=== PATIENT | male | born 1985 | race Caucasian/White ===

== ENCOUNTER 2016-05-15 21:01 | Emergency (ER) | payer OTHER ==
[2016-05-15 21:11] VITALS: BP 124/74; PULSE 72; RESP 16; TEMP 98.1; O2SAT 95
--- NOTE | 2016-05-15 21:58 | UCPHY ---
H & P Time Seen by Provider: 05/15/16 21:23 Patient Type: New HPI/ROS: This patient noticed some left great toe pain over the past month did not recall any injury to the toe but his inspected the toe and removed a shard of glass. He thinks there may be persistent foreign body in the toe because of occasional feeling of sharp discomfort to the plantar aspect of the distal phalanx of the great toe. He has no other associated symptoms he states that the discomfort is mild ROS: No fevers. No vomiting. 5 point ROS is otherwise negative Past Medical/Surgical History: Otherwise healthy Smoking Status: Never smoked Physical Exam: Physical Exam Vital signs are normal. General: No acute distress Eyes: Pupils equal and react to light. Extraocular motions are intact. Cardiac: Brisk capillary refill is intact throughout. Skin: No rash or pallor. Extremities: Atraumatic normal except for left great toe Left great toe: There is no erythema. There is no wound that I can appreciate to the plantar aspect of the affected great toe there is minimal tenderness to the plantar aspect. No swelling no erythema Neuro: Alert and oriented x3 with no sensorimotor deficits in the affected toe Initial differential diagnosis: Retained foreign body verses post injury inflammation discomfort Constitutional: Initial Vital Signs Temperature (C) 36.7 C 05/15/16 21:10 Heart Rate 72 05/15/16 21:10 Respiratory Rate 16 05/15/16 21:10 Blood Pressure 124/74 H 05/15/16 21:10 O2 Sat (%) 95 05/15/16 21:10 O2 Delivery Mode Room Air Allergies/Adverse Reactions: No Known Allergies Allergy (Unverified 10/27/13 11:33) Home Medications: Medication Instructions Recorded NK [No Known Home Meds] 05/15/16 MDM/Departure - MDM Diagnostics: Toe x-ray: Appreciate no radiopaque foreign body ED Course/Re-evaluation: I encouraged this patient to follow up with Podiatry for further evaluation of his mild toe symptoms. Given lack of clinical evidence to suggest obvious foreign body and potential present for more than 1 month I do not feel that we exploration of the toe is indicated from an emergency standpoint at this time. There is also no evidence of cellulitis currently. I counseled the patient regarding this. - Depart Disposition: Home, Routine, Self-Care Condition: Good Instructions: Musculoskeletal Pain (ED) Additional Instructions: Diagnosis: Toe pain Plan: Ibuprofen and Tylenol as needed for discomfort Follow up with foot gatherer if you have ongoing symptoms for further evaluation. Referrals: Marcial Lai MD [Primary Care Provider] - As per Instructions Amarjit Wyman DPM [Doctor of Podiatric Medicine] - As per Instructions - PQRS PQRS Measurement: NA
== END 2016-05-15 22:07 | disposition home or self-care (01) ==
LOC: CED 21:01
DX: M79.675 Pain in left toe(s) (principal)
CPT/HCPCS: 73660-PO; 99203-PO; G0463-PO

== ENCOUNTER 2018-05-18 14:45 | Emergency (ER) | payer OTHER ==
--- NOTE | 2018-05-18 14:56 | EDPHY ---
H & P Stated Complaint: L chest pain since last night, non traum L should pain, SOB x months Time Seen by Provider: 05/18/18 14:46 - Personal History Current Tetanus Diphtheria and Acellular Pertussis (TDAP): No - Medical/Surgical History Hx Asthma: No Hx Chronic Respiratory Disease: No Hx Diabetes: No Hx Cardiac Disease: No Hx Renal Disease: No Hx Cirrhosis: No Hx Alcoholism: No Hx HIV/AIDS: No Hx Splenectomy or Spleen Trauma: No Other PMH: denies - Social History Smoking Status: Never smoked Constitutional: Initial Vital Signs Temperature (C) 36.5 C 05/18/18 14:48 Heart Rate 76 05/18/18 14:48 Respiratory Rate 16 05/18/18 14:48 Blood Pressure 133/90 H 05/18/18 14:48 O2 Sat (%) 99 05/18/18 14:48 O2 Delivery Mode Room Air Allergies/Adverse Reactions: No Known Allergies Allergy (Verified 05/18/18 14:47) Home Medications: Medication Instructions Recorded NK [No Known Home Meds] 05/15/16 Medical Decision Making - Diagnostics Imaging Results: Imaging Impressions Chest X-Ray 05/18/18 15:03 IMPRESSION: Normal chest x-ray. Chest/Thorax CTA 05/18/18 15:44 Impression: 1. No evidence of thrombopulmonary embolic disease. 2. No evidence for acute cardiopulmonary abnormality. Results called and discussed with Everette Mars MD at 05/18/2018 16:40. Imaging: I viewed and interpreted images myself ED Course/Re-evaluation: CHIEF COMPLAINT: Shortness of breath, chest pain HISTORY OF PRESENT ILLNESS: The patient is a 32 y/o male complaining of shortness of breath, left shoulder pain and left chest pain. For the last 6-8 months the patient has felt more short of breath and thought that he was "having an asthma attack or out of shape ". On Sunday, 3 days ago, he went to [place] for a ski vacation and "felt under the weather". He did not ski due to his symptoms. He initially developed left shoulder pain that felt like it was in the joint. Today he was walking up a hill when he felt more winded than normal. He subsequently lied down, and the sharp shoulder pain that radiated down his arm and across his back. The shoulder pain improved, but he developed a dull left trapezius pain and left-sided chest pain. The left neck and shoulder pain does not change with neck movement. Due to the combination of symptoms he decided to present to the emergency department. No fever, headache, body aches, lightheadedness, heart palpitations, cough, abdominal pain, urinary or bowel complaints, numbness, paresthesias. REVIEW OF SYSTEMS: A comprehensive 10 system review of systems is otherwise negative aside from elements mentioned in the history of present illness and medical decision making. PHYSICAL EXAM: HR, BP, O2 Sat, RR. Temp noted General Appearance: Alert, well hydrated, appropriate, and non-toxic appearing. Head: Atraumatic without scalp tenderness or obvious injury Eyes: Pupils equal, round, reactive to light and accommodation, EOMI, no trauma , no injection. Ears: Clear bilaterally, no perforation, normal landmarks Nose: Atraumatic, no rhinorrhea, clear. Throat: There is no erythema or exudates, no lesions, normal tonsils, mucus membranes moist. Neck: Supple, 2+ carotid upstroke, nontender, no lymphadenopathy. Respiratory: No retractions, no distress, no wheezes, and no accessory muscle use. Lungs are clear to auscultation bilaterally. Cardiovascular: Regular rate and rhythm, no murmurs, rubs, or gallops. Bilateral carotid, radial, dorsalis pedis, and posterior tibial pulses intact. Good capillary refill all extremities. Gastrointestinal: Abdomen is soft, nontender, non-distended, no masses, no rebound, no guarding, no peritoneal signs. Musculoskeletal: Normal active ROM of all extremities, atraumatic. Neurological: Alert, appropriate, and interactive. The patient has normal DTRs and non-focal cranial nerves, motor, sensory, and cerebellar exam. Skin: No rashes, good turgor, no nodules on palpation. Past medical history: Denies Past surgical history: Denies Family history: Uncles had WPW Social history: Lives in [place], , employed DIAGNOSTICS/PROCEDURES/CRITICAL CARE TIME: EKG: The 12 lead EKG was interpreted by myself as sinus rhythm with a rate of 57 , possible OR depression in the inferior leads, and early repolarization. See hard copy and/or "tracemaster" electronic copy for interpretation. Chest x-ray: No acute findings. Chest CTA: No acute findings. DIFFERENTIAL DIAGNOSIS: The differential diagnosis for the patient's chest pain included but was not limited to myocardial ischemia, pulmonary embolus, chest wall pain, pleural inflammation, and pulmonary infectious causes. The differential diagnosis for the patient's shortness of breath and hypoxemia included but was not limited to pneumonia, myocardial infarction, acute mountain sickness, high altitude pulmonary edema, congestive heart failure, and pulmonary embolus. The differential diagnosis for the patient's shoulder pain included but was not limited to musculoskeletal pain, cervical nerve impingement, herniated disk, spinal fracture. MEDICAL DECISION MAKING: The patient is a 32 y/o male presenting with shortness of breath, left shoulder pain and left chest pain. For the last 6-8 months the patient has felt more short of breath and thought that he was "having an asthma attack or out of shape ". On Sunday, 3 days ago, he went to [place] for a ski vacation and "felt under the weather". Today he developed sharp shoulder pain that radiated down his arm and across his back. The shoulder pain improved, but he developed a dull left trapezius pain and left-sided chest pain. The left neck and shoulder pain does not change with neck movement. He has a normal physical exam. Labs, EKG, and chest x-ray ordered. 1458: I interpreted patient's EKG as sinus rhythm with a rate of 57, possible OR depression in the inferior leads, and early repolarization. 1546: Patient's chest x-ray and troponin are normal and his d-dimer is elevated ; chest CTA ordered. 1640: I spoke with Dr. Hanson, radiologist, who reports that the patient has a normal chest CTA. 1641: Reassessed patient and discussed normal imaging and laboratory findings. I suspect his shoulder pain is due to a cervical nerve impingement. I have advised him to follow up with his PCP and a neurosurgeon (for the shoulder pain) . Return precautions provided; patient is comfortable with this plan. - Data Points Laboratory Results: Laboratory Results 05/18/18 15:12 05/18/18 15:12 05/18/18 05/18/18 05/18/18 15:16 15:12 15:12 WBC RBC Hgb Hct MCV MCH MCHC RDW Plt Count MPV Neut % (Auto) Lymph % (Auto) [place] % (Auto) Eos % (Auto) Baso % (Auto) Nucleat RBC Rel Count Absolute Neuts (auto) Absolute Lymphs (auto) Absolute Monos (auto) Absolute Eos (auto) Absolute Basos (auto) Absolute Nucleated RBC Immature Gran % Immature Gran # D-Dimer 0.60 ug/mLFEU H ug/mLFEU (0.00-0.50) Sodium 137 mEq/L mEq/L (135-145) Potassium 4.2 mEq/L mEq/L (3.5-5.2) Chloride 103 mEq/L mEq/L (97-110) Carbon Dioxide 26 mEq/l mEq/l (22-31) Anion Gap 8 mEq/L mEq/L (6-14) BUN 9 mg/dL mg/dL (7-23) Creatinine 0.8 mg/dL mg/dL (0.7-1.3) Estimated GFR > 60 Glucose 77 mg/dL mg/dL (70-100) Calcium 9.2 mg/dL mg/dL (8.5-10.4) POC Troponin I 0.00 ng/mL ng/mL (0.00-0.08) NT-Pro-B Natriuret Pep 38 pg/mL pg/mL (0-125) 05/18/18 15:12 WBC 5.39 10^3/uL 10^3/uL (3.80-9.50) RBC 5.40 10^6/uL 10^6/uL (4.40-6.38) Hgb 16.1 g/dL g/dL (13.7-17.5) Hct 47.3 % % (40.0-51.0) MCV 87.6 fL fL (81.5-99.8) MCH 29.8 pg pg (27.9-34.1) MCHC 34.0 g/dL g/dL (32.4-36.7) RDW 12.3 % % (11.5-15.2) Plt Count 206 10^3/uL 10^3/uL (150-400) MPV 9.2 fL fL (8.7-11.7) Neut % (Auto) 56.2 % % (39.3-74.2) Lymph % (Auto) 25.4 % % (15.0-45.0) [place] % (Auto) 15.8 % H % (4.5-13.0) Eos % (Auto) 2.0 % % (0.6-7.6) Baso % (Auto) 0.4 % % (0.3-1.7) Nucleat RBC Rel Count 0.0 % % (0.0-0.2) Absolute Neuts (auto) 3.03 10^3/uL 10^3/uL (1.70-6.50) Absolute Lymphs (auto) 1.37 10^3/uL 10^3/uL (1.00-3.00) Absolute Monos (auto) 0.85 10^3/uL H 10^3/uL (0.30-0.80) Absolute Eos (auto) 0.11 10^3/uL 10^3/uL (0.03-0.40) Absolute Basos (auto) 0.02 10^3/uL 10^3/uL (0.02-0.10) Absolute Nucleated RBC 0.00 10^3/uL 10^3/uL (0-0.01) Immature Gran % 0.2 % % (0.0-1.1) Immature Gran # 0.01 10^3/uL 10^3/uL (0.00-0.10) D-Dimer Sodium Potassium Chloride Carbon Dioxide Anion Gap BUN Creatinine Estimated GFR Glucose Calcium POC Troponin I NT-Pro-B Natriuret Pep Point of Care Test Results: Chemistry 05/18/18 15:16 POC Troponin I 0.00 ng/mL ng/mL (0.00-0.08) Departure - Departure Disposition: Home, Routine, Self-Care Clinical Impression: Acute dyspnea Chest pain Qualifiers: Chest pain type: chest pain on breathing Qualified Code(s): R07.1 - Chest pain on breathing Shoulder pain, acute Qualifiers: Laterality: left Qualified Code(s): M25.512 - Pain in left shoulder Condition: Good Instructions: Chest Pain (ED), Shoulder Pain (ED), Shortness of Breath (ED) Additional Instructions: 1. Follow-up with a neurosurgeon regarding the left neck pain as you may have a cervical nerve impingement. 2. Follow-up with your primary doctor within 72 hours. 3. Return to the Emergency Department for fever, chest pain, shortness of breath , increasing pain or other worsening of condition. Referrals: Marcial Lai MD [Primary Care Provider] - As per Instructions Levy Aguilar MD [Medical Doctor] - As per Instructions Report Scribed for: Everette Mars Report Scribed by: Jennifer Robins Date of Report: 05/18/18 Time of Report: 14:57
[2018-05-18 15:22] LABS: PLATELET COUNT 206 10^3/uL (150-400)
[2018-05-18] MEDS ORDERED: IOPAMIDOL (ISOVUE 370) 100 ML BTL IV ONE (15:48)
[2018-05-18 16:52] VITALS: BP 148/93
--- NOTE | 2018-05-20 20:44 | CPEKG ---
Test Reason : OPEN Blood Pressure : / mmHG Vent. Rate : 057 BPM Atrial Rate : 057 BPM P-R Int : 154 ms QRS Dur : 094 ms QT Int : 413 ms P-R-T Axes : 041 043 019 degrees QTc Int : [address] elev, probable normal early repol pattern Confirmed by Everette Mars [id number] on 05/20/2018 8:43:27 PM Referred By: Everette Mars Confirmed By:Everette Mars
== END 2018-05-18 16:50 | disposition home or self-care (01) ==
DX: R06.00 Dyspnea, unspecified (principal); R07.1 Chest pain on breathing; M25.512 Pain in left shoulder
CPT/HCPCS: 84484-ER; Q9967